=== PATIENT | male | born 1990 | race Hispanic/Latino ===

== ENCOUNTER 2020-01-24 22:28 | Emergency (ER) | payer BC ==
[2020-01-24] MEDS ORDERED: Fluorescein 1 MG Ophth Strip EYERT ONE (22:57)
[2020-01-24] MEDS ORDERED: Erythromycin Base 0.5% Ophth Oint 1 GM Tube EYERT ONE (23:11)
--- NOTE | 2020-01-24 23:16 | EDM.PDOC ---
ED HPI GENERAL MEDICAL PROBLEM - General Chief Complaint: Eye Problems Stated Complaint: PIECE OF ROCK IN THIRD EYE Time Seen by Provider: 01/24/20 22:52 Source of Information: Reports: Patient History Limitations: Reports: No Limitations - History of Present Illness INITIAL COMMENTS - FREE TEXT/NARRATIVE: This is a 29-year-old male. He says on he might of gotten some sand in his eye or something. He thought he got it out but it is continued to bother him since that time and he comes to the ER this evening complaining of pain and discharge from his right eye. He says his eye is very sensitive to light. He denies any other acute symptoms. He has continued to rub it because of the pain and discomfort. Is a little bit of drainage on his eyelashes on that right eye. His left eye is normal. - Related Data Allergies Allergy/AdvReac Type Severity Reaction Status Date / Time No Known Allergies Allergy Verified 01/24/20 22:37 Past Medical History HEENT History: Reports: Impaired Vision - Infectious Disease History Infectious Disease History: Reports: MRSA Social & Family History - Family History Family Medical History: Noncontributory - Tobacco Use Smoking Status *Q: Current Every Day Smoker Years of Tobacco use: 10 Packs/Tins Daily: 0.1 ED ROS GENERAL - Review of Systems Review Of Systems: See Below Constitutional: Denies: Fever, Chills HEENT: Reports: Eye Discharge, Eye Pain Respiratory: Reports: No Symptoms Cardiovascular: Reports: No Symptoms Endocrine: Reports: No Symptoms GI/Abdominal: Reports: No Symptoms : Reports: No Symptoms Musculoskeletal: Reports: No Symptoms Skin: Reports: No Symptoms Neurological: Reports: No Symptoms Psychiatric: Reports: No Symptoms Hematologic/Lymphatic: Reports: No Symptoms ED EXAM GENERAL W FULL EYE - Physical Exam Exam: See Below Exam Limited By: No Limitations General Appearance: Alert, WD/WN, No Apparent Distress Eye Exam: Bilateral Eye: Other (The right eye does have some discharge on his eyelashes, it is sensitive to light, after proparacaine and numbing the he was able to open it and he can see what color my eyes are, i.e. everted the lids there is no foreign body in the upper or lower lid, there does not appear to be any foreign body on the cornea with ophthalmology exam, I placed fluorescein stain he has a 3 mm abrasion at the 6 o'clock position just below the center of the vision of the cornea, he also has some abrasions on the white part of the globe inferiorly.) Pupils: Normal Accommodation Pupillary Size: Bilateral: 3 mm Pupillary Reaction: Bilateral: Brisk Ears: Normal External Exam Nose: Normal Inspection Throat/Mouth: Normal Lips, Normal Voice, No Airway Compromise Head: Normocephalic Neck: Supple Respiratory/Chest: No Respiratory Distress Back Exam: Full Range of Motion Extremities: Normal Inspection, Normal Range of Motion Neurological: Alert, Oriented Psychiatric: Normal Affect, Normal Mood Skin Exam: Warm, Dry Course - Vital Signs Last Recorded V/S: Last Vital Signs Temp 99 F 01/24/20 22:38 Pulse 104 H 01/24/20 22:38 Resp 18 01/24/20 22:38 BP 147/85 H 01/24/20 22:38 Pulse Ox 94 L 01/24/20 22:38 - Orders/Labs/Meds Meds: Medications Discontinued Medications Generic Name Dose Route Start Last Admin Trade Name Alisa PRN Reason Stop Dose Admin Fluorescein Sodium 1 mg 01/24/20 22:57 Ful-Ann EYERT 01/24/20 22:58 ONETIME ONE Departure - Departure Time of Disposition: 23:15 Disposition: Home, Self-Care 01 Condition: Fair Clinical Impression: Right corneal abrasion Qualifiers: Encounter type: initial encounter Qualified Code(s): S05.01XA - Injury of conjunctiva and corneal abrasion without foreign body, right eye, initial encounter Right conjunctivitis Qualifiers: Conjunctivitis type: acute Acute conjunctivitis type: unspecified Qualified Code(s): H10.31 - Unspecified acute conjunctivitis, right eye - Discharge Information *PRESCRIPTION DRUG MONITORING PROGRAM REVIEWED*: Not Applicable *COPY OF PRESCRIPTION DRUG MONITORING REPORT IN PATIENT TONIO: Not Applicable Instructions: Corneal Abrasion, [id number] Referrals: PCP,None [Primary Care Provider] - Forms: ED Department Discharge, ED Return to Work/School Form Additional Instructions: Leave the eye patch on until Sunday evening then you may take it off, Sunday get some artificial tears at [facility] and once you take the eye patch off start using them as often as you need for the eye irritation, do not rub your eye because it will continue the abrasion to that eye, on Sunday follow-up with the eye clinic to make certain this is healing, return to the ER if needed Sepsis Event Note (ED) - Evaluation Sepsis Screening Result: No Definite Risk - Focused Exam Vital Signs: Vital Signs Temp Pulse Resp BP Pulse Ox 01/24/20 22:38 99 F 104 H 18 147/85 H 94 L
== END 2020-01-24 23:28 | disposition home or self-care (01) ==
LOC: JD.ED 22:28
DX: S05.01XA Injury of conjunctiva and corneal abrasion without foreign body, right eye, initial encounter (principal); H10.31 Unspecified acute conjunctivitis, right eye; F17.210 Nicotine dependence, cigarettes, uncomplicated; X58.XXXA Exposure to other specified factors, initial encounter
CPT/HCPCS: 99283; A9270

== ENCOUNTER 2022-04-10 08:01 | Emergency (ER) | payer SELFPAY ==
[2022-04-10] MEDS ORDERED: Ketorolac 30 MG/ML SDV IVPUSH SCH (08:30)
[2022-04-10] MEDS ORDERED: Sodium Chloride 0.9% 1,000 ML IV SCH (08:30)
[2022-04-10 09:14] LABS: HEMOGLOBIN A1C 6.5 %
[2022-04-10 09:29] LABS: ESTIMATED GFR 102 mL/min (>60)
== END 2022-04-10 10:58 | disposition home or self-care (01) ==
LOC: JD.ED 08:01
DX: S39.011A Strain of muscle, fascia and tendon of abdomen, initial encounter (principal); E66.9 Obesity, unspecified; Z68.30 Body mass index [BMI] 30.0-30.9, adult; Z86.16 Personal history of COVID-19
CPT/HCPCS: 36415; 71045; 80053; 82553; 83036; 83735; 83880; 84443; 84484; 85025; 85379; 85610; 85730; 86140; 93005; 96361; 96374; 99285; J1885; J7030; 93010; 99284